=== PATIENT | female | born 1975 | race Caucasian/White ===

== ENCOUNTER → 2020-08-22 | Outpatient (CLI) | payer BC | LOC: KOH-I 15:26 | DX: M54.16 Radiculopathy, lumbar region (principal); G43.109 Migraine with aura, not intractable, without status migrainosus; M47.816 Spondylosis without myelopathy or radiculopathy, lumbar region | CPT/HCPCS: 72110 ==

== ENCOUNTER → 2021-04-05 | Outpatient (CLI) | payer BC | LOC: KOH-I 14:03 | DX: M53.3 Sacrococcygeal disorders, not elsewhere classified (principal); S39.92XA Unspecified injury of lower back, initial encounter | CPT/HCPCS: 72220 ==

== ENCOUNTER → 2021-04-20 | Outpatient (CLI) | payer BC | LOC: KOH-I 04-18 10:30 | DX: M53.3 Sacrococcygeal disorders, not elsewhere classified (principal); S39.92XA Unspecified injury of lower back, initial encounter | CPT/HCPCS: 72192 ==

== ENCOUNTER → 2021-08-24 | Outpatient (CLI) | payer BC | LOC: KOH-I 14:15 | DX: M25.552 Pain in left hip (principal); W01.0XXA Fall on same level from slipping, tripping and stumbling without subsequent striking against object, initial encounter | CPT/HCPCS: 73502 ==

== ENCOUNTER → 2021-12-05 | Outpatient (CLI) | payer BC | LOC: MAMO 11-29 08:00 → US 11-29 13:30 | DX: Z12.31 Encounter for screening mammogram for malignant neoplasm of breast (principal); N60.11 Diffuse cystic mastopathy of right breast | CPT/HCPCS: 77063; 77067 ==